=== PATIENT | female | born 1945 | race Caucasian/White ===

== ENCOUNTER 2018-12-16 16:12 | Emergency (ER) | payer OTHER ==
[~2018-12-16] VITALS: Ht 160 cm; Wt 76.2 kg
[~2018-12-16 16:12] MED LIST: ADULT LOW DOSE81 MG PO; ALBUTEROL INHAL17 GM INH; ALBUTEROL2.5 MG/31 INH; AMARYL2 MG PO; AMLODIPINE BESYL5 MG PO; ATENOLOL 100MG100 MG PO; CELEXA20 MG PO; CIPROFLOXACIN500 M1 PO; FLEXERIL PO; GENTAMICIN SU3 MG/ML OPHTHALMIC; GLUMETZA500; HYDROCHLOROTHIA25 M1 PO; HYDROCODONE-AP1 EAC6 PO; LIPITOR 20 MG T20 M1 PO; LISINOPRIL20 MG PO; LOPRESSOR100 M1 PO; MOISTURIZING LU15 ML OPHTHALMIC; PERCOCET 5-3251 EACH PO; POLYMYXIN B/TMP10 ML OP; PREDNISONE 20 M20 M1 PO; SIMVASTATIN80 MG PO; TOBREX5 ML OPHTHALMIC; ZOFRAN4 MG PO
[2018-12-16] MEDS ORDERED: NORCO 5-325 TA1 EAC1 PO (16:58)
[2018-12-16] MEDS ORDERED: FLEXERIL PO (16:58)
[2018-12-16 17:32] VITALS: BP 119/58
== END 2018-12-16 17:34 | disposition home or self-care (01) ==
LOC: M.ERS 16:12
DX: M62.830 Muscle spasm of back (principal); I10 Essential (primary) hypertension; E78.5 Hyperlipidemia, unspecified; E11.9 Type 2 diabetes mellitus without complications; F17.210 Nicotine dependence, cigarettes, uncomplicated; Z90.49 Acquired absence of other specified parts of digestive tract; Z98.890 Other specified postprocedural states; Z96.652 Presence of left artificial knee joint